=== PATIENT | female | born 1965 | race Two or more races ===

== ENCOUNTER 2019-09-02 07:15 | Inpatient (IN) | payer BC ==
[2019-11-28 10:19] LABS: HEMATOCRIT 45.4 % (36.0-47.0); HEMOGLOBIN 15.6 g/dL (12.0-15.5); MEAN CORPUSCULAR HEMOGLOBIN 31.1 pg (27.0-33.4); MEAN CORPUSCULAR HGB CONC 34.2 g/dL (32.0-36.0); MEAN CORPUSCULAR VOLUME 91 fl (80-97); PLATELET COUNT 250 10^3/uL (150-450); RED CELL DISTRIBUTION WIDTH 12.8 % (11.5-14.0); WHITE BLOOD COUNT 4.4 10^3/uL (4.0-10.5)
[2019-11-28 10:36] LABS: APPEARANCE,URINE CLEAR; BILIRUBIN,URINE NEGATIVE (NEGATIVE); COLOR,URINE YELLOW; GLUCOSE, URINE NEGATIVE (NEGATIVE); KETONES,URINE NEGATIVE (NEGATIVE); LEUKOCYTE ESTERASE,URINE TRACE (NEGATIVE); NITRITE,URINE NEGATIVE (NEGATIVE); PROTEIN,URINE NEGATIVE (NEGATIVE); URINE SPECIFIC GRAVITY 1.023; UROBILINOGEN,URINE NEGATIVE mg/dL (<2.0)
[2019-11-28 10:41] LABS: ANION GAP 8 (5-19); BLOOD UREA NITROGEN 14 mg/dL (7-20); CALCIUM 9.6 mg/dL (8.4-10.2); CARBON DIOXIDE 26 mmol/L (22-30); CHLORIDE 105 mmol/L (98-107); GLUCOSE 95 mg/dL (75-110); POTASSIUM 4.3 mmol/L (3.6-5.0)
--- NOTE | 2019-11-28 13:16 | RADIOLOGY REPORT (SQ) ---
EXAM DESCRIPTION: CHEST PA/LATERAL IMAGES COMPLETED DATE/TIME: 11/28/2019 1:02 pm REASON FOR STUDY: PRE-OP COMPARISON: None. EXAM PARAMETERS: NUMBER OF VIEWS: two views TECHNIQUE: Digital Frontal and Lateral radiographic views of the chest acquired. RADIATION DOSE: NA LIMITATIONS: none FINDINGS: LUNGS AND PLEURA: No opacities, masses or pneumothorax. No pleural effusion. MEDIASTINUM AND HILAR STRUCTURES: No masses or contour abnormalities. HEART AND VASCULAR STRUCTURES: Heart normal size. No evidence for failure. BONES: No acute findings. HARDWARE: None in the chest. OTHER: No other significant finding. IMPRESSION: NO SIGNIFICANT RADIOGRAPHIC FINDING IN THE CHEST. TECHNICAL DOCUMENTATION: JOB ID: [id number] [email or web address]- All Rights Reserved Reading location - IP/workstation name: [email or web address]
--- NOTE | 2019-11-28 17:28 | EKG REPORT ---
SEVERITY:- OTHERWISE NORMAL ECG - SINUS RHYTHM LEFT AXIS DEVIATION : Confirmed by: Kiya Mcaculey MD 28-Nov-2019 17:27:30
[2019-12-02] MEDS ORDERED: LIDOCAINE 0.5% INJ-PF (5 MG/ML) 50 ML SDV SUBCUT PRN (05:00)
[2019-12-02] MEDS ORDERED: CEFAZOLIN 1 GM/D5W RTU 1 GM/50 ML RTUPB IV PRN (05:00)
[2019-12-02] MEDS ORDERED: LACTATED RINGERS 1000 ML IV PRN (05:00)
[2019-12-02] MEDS ORDERED: FENTANYL CITRATE INJ/PF 100 MCG/2 ML AMPUL ONE (06:42)
[2019-12-02] MEDS ORDERED: MIDAZOLAM 2 MG/2 ML INJ ONE (06:42)
[2019-12-02] MEDS ORDERED: DEXAMETHASONE SOD PHOSPHATE INJ 4 MG/1 ML VIAL ONE (06:43)
[2019-12-02] MEDS ORDERED: PROPOFOL INJ 200 MG/20 ML VIAL IV ONE (06:43)
[2019-12-02] MEDS ORDERED: ONDANSETRON HCL INJ/PF 4 MG/2 ML SDV ONE (06:43)
[2019-12-02] MEDS ORDERED: SUGAMMADEX SODIUM 200 MG/2 ML SDV IV ONE (06:43)
[2019-12-02] MEDS ORDERED: LIDOCAINE 0.5% INJ-PF (5 MG/ML) 50 ML SDV ONE (06:44)
[2019-12-02] MEDS ORDERED: CEFAZOLIN INJ 1 GM VIAL ONE (07:13)
[2019-12-02] MEDS ORDERED: ONDANSETRON HCL INJ/PF 4 MG/2 ML SDV IV PRN (07:48)
[2019-12-02] MEDS ORDERED: FENTANYL CITRATE INJ/PF 100 MCG/2 ML AMPUL IV PRN ×3 (07:48)
[2019-12-02] MEDS ORDERED: PROMETHAZINE HCL INJ 25 MG/1 ML VIAL IV PRN ×2 (07:48)
[2019-12-02] MEDS ORDERED: MORPHINE SULFATE 10 MG/ML INJ IV PRN (07:48)
[2019-12-02] MEDS ORDERED: MEPERIDINE HCL/PF INJ 25 MG/1 ML DISP.SYRIN IV PRN (07:48)
[2019-12-02] MEDS ORDERED: DIPHENHYDRAMINE HCL 50 MG/ML VIAL IV PRN (07:48)
[2019-12-02] MEDS: BUPIVACAINE INJ/PF LIPOSOME/PF 266 MG/20 ML SDV ONE ×2 (07:56→08:33)
--- NOTE | 2019-12-02 08:47 | Operative Report ---
Operative Report DATE OF SURGERY: 12/02/19 PREOPERATIVE DIAGNOSIS: Uterine leiomyoma POSTOPERATIVE DIAGNOSIS: Same OPERATION: HERNANDEZ/BSO SURGEON: KI KIRBY ANESTHESIA: GA TISSUE REMOVED OR ALTERED: Cervix uterus tubes and ovaries COMPLICATIONS: None ESTIMATED BLOOD LOSS: 50 mL's INTRAOPERATIVE FINDINGS: Approximately 16 to 18-week sized uterine leiomyoma and uterus, normal tubes and ovaries normal upper abdomen PROCEDURE: INDICATIONS FOR PROCEDURE: The patient had unreasonable uterine bleeding despite multiple outpatient management. She desired attempt at definitive therapy. The usual risks of bleeding, infection, anesthesia, and damage to organs or tissues was discussed with the patient who understood, and she desires attempt at definitive therapy. PROCEDURE: The patient was taken to the operating room. The patient was placed in supine position. Adequate anesthesia was ascertained. She was prepped and draped in the usual manner for a abdominal hysterectomy. EUA was performed after a time out was performed and antibiotics had been given. Bladder was drained under sterile technique. Via Pfannenstiel incision and extending through subtenons fat and fascia the peritoneum was entered without difficulty. The abdominal contents packed out the pelvis and a self- retaining retractor was placed in the abdominal cavity. The uterus was exteriorized and the around the gross identified bilaterally suture ligated and held. LigaSure advanced device was used down to the level of the uterine vessels and the tubes and ovaries were saved for removal later. Extended down from the uterine vessels: #1 chromic catgut clamping was used down the entry of the into the vagina and the cervix and uterus were handed off the operative field. The vagina was closed number chromic catgut interrupted fashion. Good hemostasis is assured. Attention was then turned to the tubes and ovaries and the infundibulopelvic ligament were then divided. The ureter was identified and noted the opposite operative field. Suture ligation a free tie was placed the uterus the ovary and tube were handed off the operative field. This is this point at the abdomen was copiously irrigated #1 PDS suture was used for for the fascia and peritoneum was noted be dry. Skin casey were placed Exparel was used incision site postoperatively. Good hemostasis was noted. The bladder was drained of a small amount of urine at the completion of the case. All sponge and needle counts were correct.
[2019-12-02] MEDS: FENTANYL CITRATE INJ/PF 100 MCG/2 ML AMPUL ONE ×2 (09:05→09:20)
[2019-12-02] MEDS ORDERED: OXYCODONE-ACETAMINOPHEN 5-325 MG TABLET PO PRN (09:48)
[2019-12-02] MEDS ORDERED: MORPHINE SULFATE 10 MG/ML INJ INJ PRN ×2 (09:50)
[2019-12-02] MEDS ORDERED: MORPHINE SULFATE 10 MG/ML INJ IM PRN (09:51)
[2019-12-02] MEDS ORDERED: PROMETHAZINE HCL INJ 25 MG/1 ML VIAL IM PRN (09:52)
[2019-12-02] MEDS: IBUPROFEN 800 MG TABLET PO SCH ×2 (13:52→21:30)
[2019-12-02] MEDS ORDERED: ROCURONIUM BROMIDE INJ 50 MG/5 ML VIAL IV ONE (14:44)
[2019-12-02] MEDS ORDERED: SUCCINYLCHOLINE CHLORIDE INJ 200 MG/10 ML VIAL ONE (14:44)
[2019-12-02] MEDS: CEFAZOLIN 1 GM/D5W RTU 1 GM/50 ML RTUPB IV SCH ×2 (16:00→21:25)
--- NOTE | 2019-12-02 16:05 | PDOC PROGRESS REPORT ---
Subjective Progress Note for:: 12/02/19 Reason For Visit: D25.1 INTRAMURAL LEIOMYOMA OF UTERUS Physical Exam - Physical Exam Vital Signs: Temp Pulse Resp BP Pulse Ox 97.8 F 64 16 144/76 H 100 12/02/19 14:27 12/02/19 14:27 12/02/19 14:27 12/02/19 14:27 12/02/19 14:27 Intake & Output 12/01/19 12/02/19 12/03/19 06:59 06:59 06:59 Intake Total 0 2060 Output Total 1160 Balance 0 900 Weight 57.61 kg General appearance: PRESENT: no acute distress, well-developed, well-nourished Head exam: PRESENT: atraumatic, normocephalic Eye exam: PRESENT: conjunctiva pink, EOMI, PERRLA. ABSENT: scleral icterus Ear exam: PRESENT: normal external ear exam Mouth exam: PRESENT: moist, tongue midline Neck exam: PRESENT: full ROM. ABSENT: carotid bruit, JVD, lymphadenopathy, thyromegaly Cardiovascular exam: PRESENT: RRR. ABSENT: diastolic murmur, rubs, systolic murmur Pulses: PRESENT: normal dorsalis pedis pul, +2 pedal pulses bilateral Vascular exam: PRESENT: normal capillary refill GI/Abdominal exam: PRESENT: normal bowel sounds, soft, other - appropriate postop, incision clean and dry. ABSENT: distended, guarding, mass, organolmegal y, rebound, tenderness Rectal exam: PRESENT: deferred Extremities exam: PRESENT: full ROM. ABSENT: calf tenderness, clubbing, pedal edema Neurological exam: PRESENT: alert, awake, oriented to person, oriented to place, oriented to time, oriented to situation. ABSENT: motor sensory deficit Psychiatric exam: PRESENT: appropriate affect, normal mood. ABSENT: homicidal ideation, suicidal ideation Skin exam: PRESENT: dry, intact, warm. ABSENT: cyanosis, rash Result Laboratory Results: 11/28/19 09:40 11/28/19 09:40 Impressions: Chest X-Ray 11/28/19 09:56 IMPRESSION: NO SIGNIFICANT RADIOGRAPHIC FINDING IN THE CHEST. Assessment & Plan - Time Time Spent with patient: Less than 15 minutes Medications reviewed and adjusted accordingly: Yes Anticipated discharge: Home Within: within 24 hours
[2019-12-03] MEDS: IBUPROFEN 800 MG TABLET PO SCH (07:58)
[2019-12-03 08:00] LABS: HEMATOCRIT 42.1 % (36.0-47.0); HEMOGLOBIN 14.5 g/dL (12.0-15.5); MEAN CORPUSCULAR HEMOGLOBIN 31.1 pg (27.0-33.4); MEAN CORPUSCULAR HGB CONC 34.5 g/dL (32.0-36.0); MEAN CORPUSCULAR VOLUME 90 fl (80-97); PLATELET COUNT 218 10^3/uL (150-450); RED BLOOD COUNT 4.66 10^6/uL (3.72-5.28)
[2019-12-03 09:39] VITALS: BP 150/85
== END 2019-12-03 10:25 | disposition home or self-care (01) | DRG 743 ==
LOC: INOR 12-02 05:17 → 2N 12-02 10:02
PROVIDERS: ADMIT Specialist; ATTEND Specialist
PROC: 0UT20ZZ Resection of Bilateral Ovaries, Open Approach (ICD-10-PCS; 2019-12-02)
PROC: 0UT70ZZ Resection of Bilateral Fallopian Tubes, Open Approach (ICD-10-PCS; 2019-12-02)
PROC: 0UT90ZZ Resection of Uterus, Open Approach (ICD-10-PCS; principal; 2019-12-02 07:15)
DX: D25.1 Intramural leiomyoma of uterus (principal)
CPT/HCPCS: 36415; 71046; 80048; 81001; 81025; 840; 85027; 86850; 86900; 86901; 87635; 88307; 93005; 93010; 94799; C9290; C9803; J0330; J0690; J1100; J2250; J2270; J2405; J2704; J3010; J3490